=== PATIENT | male | born 1945 | race Caucasian/White ===

== ENCOUNTER → 2017-07-14 | Day surgery (SDC) | payer OTHER ==
[2017-07-02 07:48] VITALS: Ht 177.8 cm; Wt 104.5 kg
[~2017-07-14] VITALS: Ht 177.8 cm; Wt 104.5 kg
[~2017-07-14] MED LIST: 500ML BSS 0.3ML EPI 1:1000PF IRRIG ONE; ACETAMINOPHEN 325 MG TAB PO PRN; AMLO-110 PO; AMVISC PLUS 0.8ML SYRINGE INT OCU ONE; ASCO10003 PO; ASPCH81X PO; ATROPINE SULFATE 0.1 MG/ML 5ML SYR IV PRN; BRIMONIDINE TART 0.2% OP SOLN PER DROP CHARGE ONE; BSS FLUSH ONE; CARV25TA PO; ENDOCOAT 0.85ML SYRINGE INT OCU ONE; EpHEDrine SULFATE INJ 50 MG/ML AMP IV PRN; EpINEphrine INJ 1MG/ML AMP 1 MG/ML AMP ONE; HydrALAZINE HCL 20 MG/ML VIAL ONE; LACTATED RINGER'S 1000ML 500 ML IV SCH; LIDOCAINE 4% OP SOLN DROP CHARGE ONE; LIDOCAINE 4% OP SOLN DROP CHARGE OPR SCH; LIDOCAINE HCL 1% MPF 2 ML VIAL ONE; LOSA50TA6 PO; MIDAZOLAM HCL 1 MG/ML 2ML VIAL ONE; MOXIFLOXACIN OPH SOLN PER DROP CHARGE ONE; ONDANSETRON INJ 2 MG/ML 2 ML VIAL IV PRN; POVIDONE-IODINE OP SOLN 30 ML BTL ONE; PROPARACAINE 0.5% OP SOLN PER DROP CHARGE OPR SCH; TOBRAMYCIN/DEXAMETHASONE OPH OINT PER APPLN CHARGE ONE
[2017-07-14] MEDS: PHENYLEPHRINE HCL 2.5% OP SOLN PER DROP CHARGE OPR SCH ×2 (08:21→08:27)
[2017-07-14] MEDS: TROPICAMIDE 1% OP SOLN PER DROP CHARGE OPR SCH ×2 (08:23→08:28)
[2017-07-14] MEDS: CYCLOPENTOLATE HCL 1% OP SOLN PER DROP CHARGE OPR SCH ×2 (08:24→08:29)
[2017-07-14] MEDS: KETOROLAC 0.5% OP SOLN PER DROP CHARGE OPR SCH ×2 (08:25→08:30)
[2017-07-14] MEDS: MOXIFLOXACIN OPH SOLN PER DROP CHARGE OPR SCH ×2 (08:26→08:34)
--- NOTE | 2017-07-14 08:43 | History & Physical Bridge - SC ---
H&P Re-Evaluation Bridge Note: I have examined the patient, reviewed the History & Physical and in the interval since the performance of the History & Physical I have noted the following changes of clinical significance: No changes noted
--- NOTE | 2017-07-14 09:45 | [facility] Operative Report ---
Operative Report Operative Date Jul 14, 2017. Pre-Operative Diagnosis Cataract Right Eye Post-Operative Diagnosis Same Procedure(s) Performed Right Cataract Phacoemulsification With Intraocular Lens Implant Surgeon Dr. Marina Heat Regulator Surgeon(s) None Estimated Blood Loss 0ml Findings cataract right eye Fluids see anesthesia record Specimens None Drains None Anesthesia Type MAC Complication(s) none Disposition no Recovery Room / PACU Indications After informed consent was obtained in the holding area the patient was wheeled back to the operating room where cardiac monitoring leads and oxygen by nasal cannula was administered by Anesthesia. Gentle IV sedation was given, and the patient's right eye was prepped and draped in usual sterile fashion. A wire lid speculum was placed into the right eye and the operating microscope was swung into position. Using 0.12 forceps and a Supersharp blade a paracentesis port was made 2 o'clock hours away from the 9 o'clock position of the patient's right eye. 1% non-preserved Lidocaine was then injected into the anterior chamber for anesthesia. A 2.0 mm keratotome blade was then used to make a shelved clear corneal incision at the 9 o'clock position of the right eye. Amvisc was injected into the anterior chamber and a cystotome and Utrata forceps were used to perform a curvilinear capsulorrhexis. BSS on a hydrodissection cannula was used to hydrodissect the lens nucleus away from the capsular bag. The phacoemulsification handpiece was then used in a stop and chop fashion to remove the lens nucleus. The irrigation and aspiration handpiece was then used to remove the residual cortical material. Amvisc was injected into the capsular bag and anterior chamber and a Bausch & Lomb MX60E 20.0 Diopter intraocular lens was injected into the capsular bag. Irrigation and aspiration handpiece was used to remove the residual viscoelastic material. The wounds were hydrated and noted to be watertight. The wire lid speculum was removed from the eye. Vigamox, Brimonidine, and TobraDex ointment were placed on the eye and it was shielded. It should be noted that EndoCoat was used extensively during the case to protect the cornea endothelium. DISPOSITION: The patient tolerated the procedure well and was wheeled to the post anesthesia care unit in stable condition. I attest to the content of the Intraoperative Record and any orders documented therein. Any exceptions are noted below. I attest to the content of the Intraoperative Record and any orders documented therein. Any exceptions are noted below.
--- NOTE | 2017-07-14 09:46 | Discharge Instructions-SurgCtr ---
Discharge Instructions Date of Service Jul 14, 2017. Visit Reason for Visit: Cataract Right Eye Discharge Discharge Diagnosis / Problem: cataract right eye Discharge Goals Goal(s): Improve function Activity Recommendations Activity Limitations: per Instructions/Follow-up section Lifting Limitations: no more than 5 pounds Anesthesia . Post Anesthesia Instructions: If you have had General Anesthesia or IV Sedation: * Do not drive today. * Resume driving when surgeon permits. * Do not make important decisions or sign legal documents today. * Call surgeon for: 1. Temperature elevations greater than 101 degrees F. 2. Uncontrollable pain. 3. Excessive bleeding. 4. Persistent nausea and vomiting. 5. Medication intolerance (nausea, vomiting or rash). * For nausea and vomiting use only clear liquids such as: tea, soda, bouillon until nausea subsides, then gradually increase diet as tolerated. * If you have any concerns or questions, call your surgeon's office. If physician is unavailable and it is an emergency, call 911 or go to the nearest emergency room. . Instructions / Follow-Up Instructions / Follow-Up ACTIVITY RECOMMENDATIONS: * Light activities * You may walk outside, read, watch television. * Mild irritation and blurred vision are common for the first few days, redness around the white part of the eye is common. MEDICATIONS: Resume previous medications unless instructed otherwise by your surgeon. Eye drops (today and tomorrow): Cipro - one drop in operative eye every 2 hours while awake Prednisolone 1% - one drop in operative eye every 2 hours while awake Bromfenac - one drop in operative eye once daily SPECIAL CARE INSTRUCTIONS: * If any problems or concerns, please call Dr. Marina's office at . * Keep plastic shield taped over eye to sleep at night. * Keep plastic shield taped over eye except to administer eye drops. * Keep plastic shield on until office visit the following day. FOLLOW UP VISIT: Follow-up with Dr. Marina in the [place] office as scheduled. If not already scheduled, please call the office at . Diet Recommendations Home Diet: resume previous diet Procedures Procedures Performed: Right Cataract Phacoemulsification With Intraocular Lens Implant Pending Studies Studies pending at discharge: no Medical Emergencies . Who to Call and When: Medical Emergencies: If at any time you feel your situation is an emergency, please call 911 immediately. . Non-Emergent Contact Non-Emergency issues call your: Customer Contact Sales Associate . . "Provider Documentation" section prepared by Tye Marina. .
[2017-07-14 09:48] VITALS: TEMP 36.6
--- NOTE | 2017-07-14 10:05 | Anesthesia Progress Nt - [facility] ---
Anesthesia Post Op Note Date & Time Jul 14, 2017 at 10:04 Vital Signs Pain Intensity: 0 Vital Signs Past 12 Hours Date Time Temp Pulse Resp B/P (MAP) Pulse Ox O2 Delivery O2 Flow Rate FiO2 07/14/17 09:48 36.6 58 16 172/81 (111) 98 Room Air 07/14/17 08:44 182/84 (116) 07/14/17 08:14 36.8 61 18 194/95 (128) 96 Room Air Notes Mental Status: alert / awake / arousable, participated in evaluation Pt Amnestic to Procedure: Yes Nausea / Vomiting: adequately controlled Pain: adequately controlled Airway Patency, RR, SpO2: stable & adequate BP & HR: stable & adequate Hydration State: stable & adequate Anesthetic Complications: no major complications apparent
[2017-07-14 10:10] VITALS: BP 182/94; PULSE 56; O2SAT 96
== END | disposition home or self-care (01) ==
LOC: X.SURG 08:06
PROVIDERS: ATTEND Ophthalmology
DX: H26.9 Unspecified cataract (principal); E66.9 Obesity, unspecified; I10 Essential (primary) hypertension; Z79.82 Long term (current) use of aspirin; Z79.899 Other long term (current) drug therapy; Z98.890 Other specified postprocedural states

== ENCOUNTER → 2017-07-28 | Day surgery (SDC) | payer OTHER ==
[2017-07-25 09:49] VITALS: Ht 177.8 cm; Wt 104.5 kg
[~2017-07-28] VITALS: Ht 177.8 cm; Wt 104.5 kg
[~2017-07-28] MED LIST changes: +FENTANYL CITRATE INJ 50 MCG/1 ML 2 ML VIAL ONE; -HydrALAZINE HCL 20 MG/ML VIAL ONE; +LABETALOL HCL IV 5 MG/ML 20ML IV ONE; +LIDOCAINE 4% OP SOLN DROP CHARGE OPL SCH; -LIDOCAINE 4% OP SOLN DROP CHARGE OPR SCH; -ONDANSETRON INJ 2 MG/ML 2 ML VIAL IV PRN; +PROPARACAINE 0.5% OP SOLN PER DROP CHARGE OPL SCH; -PROPARACAINE 0.5% OP SOLN PER DROP CHARGE OPR SCH
[2017-07-28] MEDS: PHENYLEPHRINE HCL 2.5% OP SOLN PER DROP CHARGE OPL SCH ×2 (11:15→11:20)
[2017-07-28] MEDS: TROPICAMIDE 1% OP SOLN PER DROP CHARGE OPL SCH ×2 (11:16→11:21)
[2017-07-28] MEDS: CYCLOPENTOLATE HCL 1% OP SOLN PER DROP CHARGE OPL SCH ×2 (11:17→11:22)
[2017-07-28] MEDS: KETOROLAC 0.5% OP SOLN PER DROP CHARGE OPL SCH ×2 (11:18→11:23)
[2017-07-28] MEDS: MOXIFLOXACIN OPH SOLN PER DROP CHARGE OPL SCH ×2 (11:19→11:31)
--- NOTE | 2017-07-28 12:45 | [facility] Operative Report ---
Operative Report Operative Date Jul 28, 2017. Pre-Operative Diagnosis Left Eye Cataract Post-Operative Diagnosis Same Procedure(s) Performed Left Eye Cataract Phacoemulsification With Intraocular Lens Implant Surgeon Dr. Marina Braider Operator Surgeon(s) None Estimated Blood Loss None Findings cataract left eye Fluids see anesthesia record Specimens None Drains None Anesthesia Type MAC Complication(s) none Disposition no Recovery Room / PACU Indications decreased vision left eye Description of Procedure After informed consent was obtained in the holding area the patient was wheeled back to the operating room where cardiac monitoring leads and oxygen by nasal cannula was administered by Anesthesia. Gentle IV sedation was given, and the patient's left eye was prepped and draped in usual sterile fashion. A wire lid speculum was placed into the left eye and the operating microscope was swung into position. Using 0.12 forceps and a Supersharp blade a paracentesis port was made 2 o'clock hours away from the 3 o'clock position of the patient's left eye. 1% non-preserved Lidocaine was then injected into the anterior chamber for anesthesia. A 2.0 mm keratotome blade was then used to make a shelved clear corneal incision at the 3 o'clock position of the left eye. Amvisc was injected into the anterior chamber and a cystotome and Utrata forceps were used to perform a curvilinear capsulorrhexis. BSS on a hydrodissection cannula was used to hydrodissect the lens nucleus away from the capsular bag. The phacoemulsification handpiece was then used in a stop and chop fashion to remove the lens nucleus. The irrigation and aspiration handpiece was then used to remove the residual cortical material. Amvisc was injected into the capsular bag and anterior chamber and a Bausch & Lomb MX60 20.5 Diopter intraocular lens was injected into the capsular bag. Irrigation and aspiration handpiece was used to remove the residual viscoelastic material. The wounds were hydrated and noted to be watertight. The wire lid speculum was removed from the eye. Vigamox, Brimonidine, and TobraDex ointment were placed on the eye and it was shielded. It should be noted that EndoCoat was used extensively during the case to protect the cornea endothelium. DISPOSITION: The patient tolerated the procedure well and was wheeled to the post anesthesia care unit in stable condition. I attest to the content of the Intraoperative Record and any orders documented therein. Any exceptions are noted below. I attest to the content of the Intraoperative Record and any orders documented therein. Any exceptions are noted below.
--- NOTE | 2017-07-28 12:46 | Discharge Instructions-SurgCtr ---
Discharge Instructions Date of Service Jul 28, 2017. Visit Reason for Visit: Cataract Left Eye Discharge Discharge Diagnosis / Problem: cataract left eye Discharge Goals Goal(s): Improve function Activity Recommendations Activity Limitations: per Instructions/Follow-up section Lifting Limitations: no more than 5 pounds Anesthesia . Post Anesthesia Instructions: If you have had General Anesthesia or IV Sedation: * Do not drive today. * Resume driving when surgeon permits. * Do not make important decisions or sign legal documents today. * Call surgeon for: 1. Temperature elevations greater than 101 degrees F. 2. Uncontrollable pain. 3. Excessive bleeding. 4. Persistent nausea and vomiting. 5. Medication intolerance (nausea, vomiting or rash). * For nausea and vomiting use only clear liquids such as: tea, soda, bouillon until nausea subsides, then gradually increase diet as tolerated. * If you have any concerns or questions, call your surgeon's office. If physician is unavailable and it is an emergency, call 911 or go to the nearest emergency room. . Instructions / Follow-Up Instructions / Follow-Up ACTIVITY RECOMMENDATIONS: * Light activities * You may walk outside, read, watch television. * Mild irritation and blurred vision are common for the first few days, redness around the white part of the eye is common. MEDICATIONS: Resume previous medications unless instructed otherwise by your surgeon. Eye drops (today and tomorrow): Cipro - one drop in operative eye every 2 hours while awake Prednisolone 1% - one drop in operative eye every 2 hours while awake Bromfenac - one drop in operative eye once daily SPECIAL CARE INSTRUCTIONS: * If any problems or concerns, please call Dr. Marina's office at . * Keep plastic shield taped over eye to sleep at night. * Keep plastic shield taped over eye except to administer eye drops. * Keep plastic shield on until office visit the following day. FOLLOW UP VISIT: Follow-up with Dr. Marina in the [place] office as scheduled. If not already scheduled, please call the office at . Diet Recommendations Home Diet: resume previous diet Procedures Procedures Performed: Left Eye Cataract Phacoemulsification With Intraocular Lens Implant Pending Studies Studies pending at discharge: no Medical Emergencies . Who to Call and When: Medical Emergencies: If at any time you feel your situation is an emergency, please call 911 immediately. . Non-Emergent Contact Non-Emergency issues call your: Geophysics Teacher . . "Provider Documentation" section prepared by Tye Marina. .
[2017-07-28 12:50] VITALS: TEMP 36.3
[2017-07-28 13:12] VITALS: BP 171/84; PULSE 63; O2SAT 95
--- NOTE | 2017-07-28 13:19 | Anesthesia Progress Nt - [facility] ---
Anesthesia Post Op Note Date & Time Jul 28, 2017 at 13:19 Vital Signs Pain Intensity: 0 Vital Signs Past 12 Hours Date Time Temp Pulse Resp B/P (MAP) Pulse Ox O2 Delivery O2 Flow Rate FiO2 07/28/17 13:12 63 16 171/84 (113) 95 Room Air 07/28/17 12:50 36.3 58 16 181/82 (115) 95 Room Air 07/28/17 11:09 36.5 65 16 182/81 (114) 96 Room Air Notes Mental Status: alert / awake / arousable, participated in evaluation Pt Amnestic to Procedure: Yes Nausea / Vomiting: adequately controlled Pain: adequately controlled Airway Patency, RR, SpO2: stable & adequate BP & HR: stable & adequate Hydration State: stable & adequate Anesthetic Complications: no major complications apparent
== END | disposition home or self-care (01) ==
LOC: X.SURG 10:58
PROVIDERS: ATTEND Ophthalmology
DX: H25.12 Age-related nuclear cataract, left eye (principal); I10 Essential (primary) hypertension; H35.039 Hypertensive retinopathy, unspecified eye; E66.9 Obesity, unspecified; Z68.33 Body mass index [BMI] 33.0-33.9, adult

== ENCOUNTER 2017-11-10 17:37 | Emergency (ER) | payer OTHER ==
[~2017-11-10] VITALS: Ht 176.5 cm; Wt 109.0 kg
[~2017-11-10 17:37] MED LIST changes: -500ML BSS 0.3ML EPI 1:1000PF IRRIG ONE; -ACETAMINOPHEN 325 MG TAB PO PRN; -AMLO-110 PO; +AMLO5TAB3 PO; -AMVISC PLUS 0.8ML SYRINGE INT OCU ONE; -ATROPINE SULFATE 0.1 MG/ML 5ML SYR IV PRN; -BRIMONIDINE TART 0.2% OP SOLN PER DROP CHARGE ONE; -BSS FLUSH ONE; -ENDOCOAT 0.85ML SYRINGE INT OCU ONE; -EpHEDrine SULFATE INJ 50 MG/ML AMP IV PRN; -EpINEphrine INJ 1MG/ML AMP 1 MG/ML AMP ONE; -FENTANYL CITRATE INJ 50 MCG/1 ML 2 ML VIAL ONE; -LABETALOL HCL IV 5 MG/ML 20ML IV ONE; -LACTATED RINGER'S 1000ML 500 ML IV SCH; -LIDOCAINE 4% OP SOLN DROP CHARGE ONE; -LIDOCAINE 4% OP SOLN DROP CHARGE OPL SCH; -LIDOCAINE HCL 1% MPF 2 ML VIAL ONE; -MIDAZOLAM HCL 1 MG/ML 2ML VIAL ONE; -MOXIFLOXACIN OPH SOLN PER DROP CHARGE ONE; -POVIDONE-IODINE OP SOLN 30 ML BTL ONE; -PROPARACAINE 0.5% OP SOLN PER DROP CHARGE OPL SCH; -TOBRAMYCIN/DEXAMETHASONE OPH OINT PER APPLN CHARGE ONE
[2017-11-10 17:39] VITALS: TEMP 37.1; Ht 176.5 cm; Wt 109.0 kg
[2017-11-10 18:34] LABS: BASO % 0.5 %; BASO ABS # 0.04 K/uL (0-0.2); EOS % 1.4 %; EOS ABS # 0.12 K/uL (0-0.5); HEMATOCRIT 35.3 % (42-52); HEMOGLOBIN 11.9 g/dL (14.0-18.0); IG# 0.02 K/uL (0.00-0.02); LYMPH % 21.5 %; LYMPH ABS # 1.82 K/uL (1.2-3.4); MEAN CELL VOLUME 95.9 fL (80-100); MEAN CORPUSCULAR HEMOGLOBIN 32.3 pg (25-34); MEAN CORPUSCULAR HGB CONC 33.7 g/dl (32-36); MEAN PLATELET VOLUME 10.7 fL (7.4-10.4); MONO % 10.8 %; MONO ABS # 0.91 K/uL (0.11-0.59); NEUT % 65.6 %; NEUT ABS # 5.54 K/uL (1.4-6.5); PLATELET COUNT 175 K/uL (130-400); RED CELL DISTRIBUTION WIDTH CV 13.2 % (11.5-14.5); RED CELL DISTRIBUTION WIDTH SD 45.7 fL (36.4-46.3); WHITE BLOOD COUNT 8.45 K/uL (4.8-10.8)
--- NOTE | 2017-11-10 18:42 | DIAGNOSTIC IMAGING REPORT ---
L ELBOW MIN 3 VIEWS ROUTINE CLINICAL HISTORY: 72 years-old Male presenting with left elbow pain/swelling/effusion, fall, open wounds. TECHNIQUE: Frontal, oblique, lateral views of the left elbow were obtained. COMPARISON: None. FINDINGS: Elbow joint congruent. No radiographic evidence of an elbow joint effusion. No acute fracture or malalignment. No advanced degenerative change. Significant soft tissue swelling over the olecranon. No radiographic evidence of subcutaneous emphysema. IMPRESSION: 1. No acute osseous injury. 2. Significant soft tissue swelling over the olecranon could suggest posttraumatic distention of the olecranon bursa. Electronically signed by: Lawrence Topete M.D. 11/10/2017 6:41 PM Dictated Date/Time: 11/10/2017 6:39 PM
[2017-11-10 18:48] LABS: CALCIUM 8.8 mg/dl (8.5-10.1); CREATININE 1.25 mg/dl (0.60-1.40); POTASSIUM 3.9 mmol/L (3.5-5.1)
[2017-11-10] MEDS ORDERED: DOXYCYCLINE HYCLATE 100 MG CAP PO STA (19:03)
[2017-11-10] MEDS ORDERED: DOXYCYCLINE HYCLATE 100 MG CAP PO ONE (19:03)
[2017-11-10] MEDS ORDERED: LIDOCAINE 1% BUFFERED INJ 20 ML VIAL INFIL STA (19:03)
[2017-11-10] MEDS ORDERED: DOXY100C PO (20:04)
--- NOTE | 2017-11-10 20:08 | EMERGENCY ROOM VISIT NOTE ---
ED Visit Note First contact with patient: 17:44 CHIEF COMPLAINT: Left Elbow pain HISTORY OF PRESENT ILLNESS: This 72-year-old male patient presents to the emergency department, ambulatory, complaining of pain in the left elbow for approximately 5 days. Patient states he suffered a mechanical fall backwards onto his left elbow last Friday while working in the yard. He believes he may have chipped a piece of the bone, as he has been experiencing increased pain , swelling, and some mild redness radiating into the forearm. He does report to open wounds in the elbow. The patient rates their pain as sharp and 6/10. The patient has taken no medications for relief of the pain. The patient has not had previous fractures to this elbow. The patient does not have any numbness or tingling. The patient denies any other injuries. REVIEW OF SYSTEMS: A 6 system review of systems was completed with positives and pertinent negatives listed in the HPI. ALLERGIES: None MEDICATIONS: Amlodipine, vitamin C, carvedilol, losartan PMH: Hypertension SOCIAL HISTORY: The patient lives locally with family. He denies drug, alcohol , tobacco use. PHYSICAL EXAM: Vital Signs: Reviewed Nurse's notes, vital signs stable. GENERAL : This is a 72-year-old white male, in no acute distress, well-developed, well- nourished. SKIN: Significant edema over the olecranon bursa with erythema radiating from the elbow into the forearm. The skin was otherwise without rashes, erythema, or bruising. Capillary reflex less than 3 seconds. MUSCULOSKELETAL: The patient is holding their elbow in a slightly flexed position. There is tenderness over the olecranon bursa of the left elbow. There is tenderness with full flexion and full extension of the left elbow. There is no tenderness of the shoulder, wrist, or hand. The patient is able to give a thumbs up, make an OK sign, and a #3 with their fingers. Radial pulse 2+. NEURO: Patient was alert and oriented to person place and time. Normal sensation to light and sharp touch. RADIOLOGY: L ELBOW MIN 3 VIEWS ROUTINE CLINICAL HISTORY: 72 years-old Male presenting with left elbow pain/swelling/effusion, fall, open wounds. TECHNIQUE: Frontal, oblique, lateral views of the left elbow were obtained. COMPARISON: None. FINDINGS: Elbow joint congruent. No radiographic evidence of an elbow joint effusion. No acute fracture or malalignment. No advanced degenerative change. Significant soft tissue swelling over the olecranon. No radiographic evidence of subcutaneous emphysema. IMPRESSION: 1. No acute osseous injury. 2. Significant soft tissue swelling over the olecranon could suggest posttraumatic distention of the olecranon bursa. Electronically signed by: Lawrence Topete M.D. 11/10/2017 6:41 PM Dictated Date/Time: 11/10/2017 6:39 PM EMERGENCY DEPARTMENT COURSE: I examined the patient. IV access obtained, labs drawn. An x-ray of the left elbow was reviewed myself and read by radiology and shows significant soft tissue swelling of the olecranon which is suggestive of posttraumatic distention of the olecranon bursa. Labs reviewed and did not reveal any significant leukocytosis. The patient is mildly anemic with a hemoglobin of 11.9. ESR elevated at 47. CRP elevated at 5.87. PRP without significant abnormality. Of the patient's left upper extremity. Patient's symptoms are consistent with an acute traumatic olecranon bursitis. The bursa fluid will be drained and cultured and the patient will be started on antibiotics. An outline was drawn of the erythema Verbal consent obtained to perform the procedure to aspirate the joint. The elbow was placed in a flexed position at 90. The elbow was cleansed with alcohol. 1 cc of 1% buffered lidocaine without epinephrine was used to anesthetize the superior olecranon. A 16-gauge needle was then inserted from the superior aspect of the olecranon bursa to drain approximately 35 cc of milky , orange/red fluid. This fluid was labeled and sent to the lab for testing. The wound was cleansed and a pressure bandage applied. The patient was placed in an Pranav wrap under my direction and the position was satisfactory. Neurovascular status was rechecked and intact. The patient was given his first dose of doxycycline here in the emergency department as well as an extra dose to go home with. All questions answered to patient's satisfaction prior to discharge per discharge instructions reviewed. The patient was discharged home in stable condition. I attest that I have personally reviewed the patient's current medication list. Blood Pressure Screening: Patient was found to have a slightly elevated blood pressure due to circumstances. I do not believe that the patient requires hypertension monitoring. Differential diagnosis includes bursitis, fracture, sprain, strain, cellulitis, abscess, DVT, superficial thrombus, septic joint, necrotizing fasciitis, burn, dermatitis, impetigo, erythema multiforme, bite, osteomyelitis, Camp-Jones Syndrome, gangrene, malignancy, and others DIAGNOSIS: Infected left olecranon bursitis The chart was completed utilizing [employer] Speech voice recognition software. Grammatical errors, random word insertions, pronoun errors, and incomplete sentences are an occasional consequence of this system due to software limitations, ambient noise, and hardware issues. Any formal questions or concerns about the content, text, or information contained within the body of this dictation should be directly addressed to the provider for clarification. Problem List Medical Problems: (1) Hypertension Status: Chronic Current/Historical Medications Scheduled Amlodipine (Norvasc), 5 MG PO QAM Ascorbic Acid (Vitamin C), 1 TAB PO 3XWK Aspirin (Aspirin Chewable), 81 MG PO QAM Carvedilol (Coreg), 25 MG PO BID Doxycycline Hyclate (Vibramycin), 100 MG PO BID Losartan Potassium (Cozaar), 50 MG PO QAM Allergies Coded Allergies: No Known Allergies (Unverified , 07/28/17) Vital Signs Date Time Temp Pulse Resp B/P (MAP) Pulse Ox O2 Delivery O2 Flow Rate FiO2 11/10/17 17:39 37.1 81 18 202/105 96 Room Air Laboratory Results 11/10/17 18:18 Red Blood Count 3.68, Mean Corpuscular Volume 95.9, Mean Corpuscular Hemoglobin 32.3, Mean Corpuscular Hemoglobin Concent 33.7, Mean Platelet Volume 10.7, Neutrophils (%) (Auto) 65.6, Lymphocytes (%) (Auto) 21.5, Monocytes (%) (Auto) 10.8, Eosinophils (%) (Auto) 1.4, Basophils (%) (Auto) 0.5, Neutrophils # (Auto ) 5.54, Lymphocytes # (Auto) 1.82, Monocytes # (Auto) 0.91, Eosinophils # (Auto ) 0.12, Basophils # (Auto) 0.04 11/10/17 18:18 Test 11/10/17 18:18 White Blood Count 8.45 K/uL (4.8-10.8) Red Blood Count 3.68 M/uL (4.7-6.1) Hemoglobin 11.9 g/dL (14.0-18.0) Hematocrit 35.3 % (42-52) Mean Corpuscular Volume 95.9 fL (80-100) Mean Corpuscular Hemoglobin 32.3 pg (25-34) Mean Corpuscular Hemoglobin Concent 33.7 g/dl (32-36) Platelet Count 175 K/uL (130-400) Mean Platelet Volume 10.7 fL (7.4-10.4) Neutrophils (%) (Auto) 65.6 % Lymphocytes (%) (Auto) 21.5 % Monocytes (%) (Auto) 10.8 % Eosinophils (%) (Auto) 1.4 % Basophils (%) (Auto) 0.5 % Neutrophils # (Auto) 5.54 K/uL (1.4-6.5) Lymphocytes # (Auto) 1.82 K/uL (1.2-3.4) Monocytes # (Auto) 0.91 K/uL (0.11-0.59) Eosinophils # (Auto) 0.12 K/uL (0-0.5) Basophils # (Auto) 0.04 K/uL (0-0.2) RDW Standard Deviation 45.7 fL (36.4-46.3) RDW Coefficient of Variation 13.2 % (11.5-14.5) Immature Granulocyte % (Auto) 0.2 % Immature Granulocyte # (Auto) 0.02 K/uL (0.00-0.02) Erythrocyte Sedimentation Rate 47 mm/hr (0-14) Anion Gap 7.0 mmol/L (3-11) Est Creatinine Clear Calc Drug Dose 66.5 ml/min Estimated GFR () 66.7 Estimated GFR (Non- 57.6 BUN/Creatinine Ratio 14.0 (10-20) Calcium Level 8.8 mg/dl (8.5-10.1) C-Reactive Protein 5.87 mg/dl (0-0.29) Departure Information Impression Primary Impression: Infection of left olecranon bursa Dispostion Home / Self-Care Condition GOOD Prescriptions Doxycycline Hyclate (VIBRAMYCIN) 100 Mg Cap 100 MG PO BID for 9 Days, #18 CAP Prov: Shayla Hines, PA-Abbie 11/10/17 Referrals Beni Hernandez D.O. (PCP) Prasanna Jenkins M.D. Patient Instructions ED Bursitis Elbow Olecranon, [facility] Additional Instructions You were seen in the emergency department today for an infected left olecranon bursitis. As discussed, x-ray did rule out fracture. A culture of the bursal fluid was taken and sent to the lab for testing. Results will be available in 2-3 days. You will receive a phone call if antibiotics must be switched. You have been prescribed Doxycycline to be taken as prescribed. This is an antibiotic. All antibiotics have the potential to cause diarrhea. Stop this medication and contact a medical provider if you were to develop any significant adverse side effects including: wheezing, shortness of breath, passing out, vomiting, or a diffuse rash. Always take antibiotics as directed and COMPLETE the ENTIRE course regardless of the improvement of your symptoms. Be sure to eat prior to taking this antibiotic. Do not eat or drink milk products immediately before taking this medication. Make sure that the pill is completely swallowed each time. Protect yourself with sunscreen while on this antibiotic as it increases your skin's sensitivity to the light and cause bad sunburns. Ibuprofen(Motrin, Advil) may be used for fever or pain. Use 600mg every six hours as needed. Take with food. Avoid using more than 2400mg in a 24 hour period. Do not use 2400mg per day for more than three consecutive days without physician direction. Prolonged inappropriate use can lead to stomach upset or ulcers. (AND/OR) Acetaminophen(Tylenol) may be used for fever or pain. Use 1000mg every six hours as needed. Avoid using more than 3000mg in a 24 hour period. Use the PRANAV wrap to provide compression to the elbow and wound. Keep the wound clean and dry with soap and water. Do not scrub over the wound. Follow-up with orthopedics in 2-3 days for re-evaluation of the symptoms and infection. Return to the ED for worsening pain, swelling, redness, numbness or tingling, fever, chills, systemic symptoms, or other concerning symptoms.
[2017-11-10 20:33] VITALS: BP 128/79; PULSE 79; O2SAT 98
== END 2017-11-10 20:34 | disposition home or self-care (01) ==
LOC: C.EDB 17:38 → C.EDD 20:34
DX: M71.122 Other infective bursitis, left elbow (principal); I10 Essential (primary) hypertension; Z79.899 Other long term (current) drug therapy; D64.9 Anemia, unspecified